=== PATIENT | male | born 2000 | race Hispanic/Latino ===

== ENCOUNTER 2021-09-25 20:00 | Emergency (ER) | payer MEDICAID, OTHER ==
[2021-09-25] MEDS ORDERED: Ibuprofen 200 MG TAB ONE (21:35)
[2021-09-25] MEDS ORDERED: AMOXicillin 250 MG CAP ONE (21:35)
[2021-09-26 17:44] LABS: SARS-CoV-2 PCR by NAA Not Detected (NotDetected)
== END 2021-09-25 21:50 | disposition home or self-care (01) ==
LOC: NAV ERS 20:00
DX: J06.9 Acute upper respiratory infection, unspecified (principal); H66.92 Otitis media, unspecified, left ear; Z20.822 Contact with and (suspected) exposure to COVID-19
CPT/HCPCS: 99283; U0003; U0005